=== PATIENT | female | born 1995 | race Caucasian/White ===

== ENCOUNTER 2016-08-18 18:48 | Emergency (ER) | END 2016-08-18 20:12 | disposition home or self-care (01) | DX: J06.9 Acute upper respiratory infection, unspecified (principal) ==

== ENCOUNTER 2018-02-11 18:42 | Emergency (ER) | END 2018-02-11 21:33 | disposition home or self-care (01) ==

== ENCOUNTER 2018-07-21 13:03 | Emergency (ER) | payer OTHER ==
[~2018-07-21] VITALS: Wt 82.0 kg
[~2018-07-21 13:03] MED LIST: ALBU8.5H8 INH; CETI10CA PO; FIORICET PO; FLUT9.9S NASAL; GUAI120S26 PO; IBUP-1542 PO
[2018-07-21 13:09] VITALS: BP 149/96; PULSE 88; RESP 20
[2018-07-21] MEDS ORDERED: SOD CHLORIDE 0.9% 1,000 ML IV STA (14:40)
[2018-07-21] MEDS ORDERED: ONDANSETRON 4 MG INJ IV STA (14:40)
[2018-07-21] MEDS ORDERED: MECLIZINE 12.5 MG TAB PO ONE (15:00)
[2018-07-21] MEDS ORDERED: ACET500C5 PO (16:10)
[2018-07-21] MEDS ORDERED: ONDA4TAB14 PO (16:10)
--- NOTE | 2018-07-21 18:29 | ERD ---
ER Documentation Chief Complaint Chief Complaint dizziness, abd pain, nausea started today, unk status HPI Patient is a 23-year-old female with no past medical history presents the ER for concerns of multiple complaints. Patient reports dizziness for last 3 days. Patient states that she feels as if the room is spinning. Patient also admits to diffuse abdominal pain. She is unable to localize where the pain is the most. Patient reports nausea. She denies any fevers or chills. Patient denies any vomiting or diarrhea. Patient denies any dysuria, frequency, urgency or hematuria. Patient states her last menstrual period was 3 weeks ago. She states she did have a positive test initially and a negative test thereafter. Patient is unsure if she is . Patient states she is also having intermittent palpitations. She states the palpitations come and go. Palpitations last less than 1 minute. Patient denies any history of DVT/PE, OCP use, history of recent travel or history of recent surgeries. ROS All systems reviewed and are negative except as per history of present illness. Medications Home Meds Active Scripts Ondansetron (Ondansetron Odt) 4 Mg Tab.rapdis, 4 MG PO Q6H PRN for NAUSEA AND/OR VOMITING, #10 TAB Prov:EMILY LANG PA-C 07/26/18 Famotidine* (Pepcid*) 20 Mg Tablet, 20 MG PO BID for 4 Days, TAB Prov:EMILY LANG PA-C 07/26/18 Ondansetron (Ondansetron Odt) 4 Mg Tab.rapdis, 4 MG PO Q6H PRN for NAUSEA AND/OR VOMITING, #10 TAB Prov:LAYLA COURTNEY PA-C 07/21/18 Acetaminophen* (Tylophen*) 500 Mg Capsule, 1 CAP PO Q6H PRN for PAIN AND OR ELEVATED TEMP, #20 CAP Prov:LAYLA COURTNEY PA-C 07/21/18 Acetamin/Butalbital/Caffeine* (Fioricet*) [id number] Tab, 1 TAB PO Q6H PRN for PAIN, #30 TAB Prov:KAZ NOLAN PA-C 02/11/18 Fluticasone Propionate (Flonase Allergy Relief) 9.9 Ml [place].susp, 2 SPRAY NASAL DAILY, #1 BOTTLE TO EACH NOSTRIL Prov:BENITO LAGUNA NP 08/18/16 Albuterol Sulfate* (Proair HFA*) 8.5 Gm Hfa.aer.ad, 2 PUFF INH Q4H PRN for WHEEZING AND SOB, #1 INHALER Prov:BENITO LAGUNA NP 08/18/16 Ibuprofen* (Motrin*) 600 Mg Tab, 600 MG PO Q6H PRN for PAIN AND OR ELEVATED TEMP, #30 TAB Prov:BENITO LAGUNA NP 08/18/16 Cetirizine Hcl* (Zyrtec*) 10 Mg Capsule, 10 MG PO DAILY, #30 TAB.CHEW Prov:BENITO LAGUNA NP 08/18/16 Cffvqejszfp-W-Kaaglnpcuu Hb* (Guaifenesin* DM Syrup) 120 Ml Syrup, 10 ML PO Q4H PRN for COUGH, #120 ML Prov:BENITO LAGUNA NP 08/18/16 Allergies Allergies: Coded Allergies: No Known Allergy (Unverified , 07/26/18) PMhx/Soc Medical and Surgical Hx: pt denies Medical Hx, pt denies Surgical Hx History of Surgery: No Anesthesia Reaction: No Hx Neurological Disorder: No Hx Respiratory Disorders: No Hx Cardiac Disorders: No Hx Psychiatric Problems: No Hx Miscellaneous Medical Probl: No Hx Alcohol Use: Yes (socially) Hx Substance Use: No Hx Tobacco Use: No Smoking Status: Never smoker FmHx Family History: No diabetes Physical Exam Vitals Physical Exam GENERAL: Well-developed, well-nourished female. Appears in no acute distress. Speaking in full sentences. HEAD: Normocephalic, atraumatic. EYES: Pupils are equally reactive bilaterally. EOMs grossly intact. No conjunctival erythema. ENT: Moist mucous membranes. No uvula deviation. No kissing tonsils. NECK: Supple. No meningismus. Normal range of motion of the neck. LUNG: Clear to auscultation bilaterally. No rhonchi, wheezing, rales or coarse breath sounds. HEART: Regular rate and rhythm. No murmurs, rubs or gallops. Equal pulses bilaterally. ABDOMEN: Soft, nondistended. Slight tenderness to palpation in all 4 quadrants. . Positive bowel sounds in all four quadrants. No rebound tenderness, no guarding. (-) McBurney's point tenderness. No CVA tenderness. BACK: No midline tenderness. EXTREMITIES: Equal pulses bilaterally. No peripheral clubbing, cyanosis or edema. No unilateral leg swelling. NEUROLOGIC: Alert and oriented. Cranial nerves II through XII intact. Equal marble installation helper strength bilaterally. No pronator drift. Moving all four extremities without any difficulty. Normal speech. Steady gait. SKIN: Normal color. Warm and dry. No rashes or lesions. Results 24 hrs Laboratory Tests Test 07/21/18 14:27 07/21/18 14:28 07/21/18 14:58 Bedside Urine pH (LAB) 7.0 Bedside Urine Protein (LAB) Negative Bedside Urine Glucose (UA) Negative Bedside Urine Ketones (LAB) Negative Bedside Urine Blood 2+ Bedside Urine Nitrite (LAB) Negative Bedside Urine Leukocyte Esterase (L Negative POC Beta HCG, Qualitative NEGATIVE White Blood Count 12.8 10^3/ul Red Blood Count 4.88 10^6/ul Hemoglobin 13.7 g/dl Hematocrit 42.5 % Mean Corpuscular Volume 87.1 fl Mean Corpuscular Hemoglobin 28.1 pg Mean Corpuscular Hemoglobin Concent 32.2 g/dl Red Cell Distribution Width 11.9 % Platelet Count 313 10^3/UL Mean Platelet Volume 10.5 fl Immature Granulocytes % 0.200 % Neutrophils % 63.4 % Lymphocytes % 28.2 % Monocytes % 7.3 % Eosinophils % 0.6 % Basophils % 0.3 % Nucleated Red Blood Cells % 0.0 /100WBC Immature Granulocytes # 0.030 10^3/ul Neutrophils # 8.1 10^3/ul Lymphocytes # 3.6 10^3/ul Monocytes # 0.9 10^3/ul Eosinophils # 0.1 10^3/ul Basophils # 0.0 10^3/ul Nucleated Red Blood Cells # 0.0 10^3/ul Sodium Level 140 mmol/L Potassium Level 4.1 mmol/L Chloride Level 104 mmol/L Carbon Dioxide Level 26 mmol/L Anion Gap 10 Blood Urea Nitrogen 11 mg/dl Creatinine 0.77 mg/dl Est Glomerular Filtrat Rate mL/min > 60 mL/min Glucose Level 106 mg/dl Calcium Level 10.1 mg/dl Total Bilirubin 0.1 mg/dl Direct Bilirubin 0.00 mg/dl Indirect Bilirubin 0.1 mg/dl Aspartate Amino Transf (AST/SGOT) 19 IU/L Alanine Aminotransferase (ALT/SGPT) 9 IU/L Alkaline Phosphatase 68 IU/L Total Protein 9.3 g/dl Albumin 4.8 g/dl Globulin 4.50 g/dl Albumin/Globulin Ratio 1.06 Lipase 58 U/L Current Medications Medications Dose Sig/Marco Antonio Start Time Status Last (Trade) Ordered Route PRN Stop Time Admin Dose Reason Admin Sodium 1,000 ml @ Q1H STAT 07/21/18 DC 07/21/18 Chloride 1,000 mls/hr IV 14:40 07/21/18 15:09 15:39 Ondansetron 4 mg ONCE STAT 07/21/18 DC 07/21/18 HCl (Zofran IV 14:40 07/21/18 15:09 Inj) 15:01 Meclizine 25 mg ONCE ONCE 07/21/18 DC 07/21/18 HCl PO 15:00 07/21/18 15:09 (Antivert) 15:01 Procedures/MDM ED COURSE: The patient was stable throughout ED course. I kept the patient and/or family informed of laboratory and diagnostic imaging results throughout the ED course. EKG: Read by Dr. Petersen attending physician. EKG shows normal sinus rhythm, incomplete right bundle branch block, [address] elevations or T wave changes were noted. MEDICATIONS GIVEN: Zofran, meclizine, IV fluids Patient tolerated medication well with no adverse reactions. Patient reported improvement in pain. MEDICAL DECISION MAKING: This is a 23-year-old female presents the ER for concerns of dizziness, diffuse abdominal pain, nausea and palpitations for the last 3 days.. Vital signs were reviewed. Patient is afebrile. Patient was not hypoxic. Patient had mild tenderness to palpation in all 4 quadrants. Patient had no rebound or guarding. Patient's neuro exam was normal. IV line was established. Blood work was obtained. CBC showed no evidence of severe anemia. Patient's WBC count was 12.8. CMP showed no evidence of electrolyte abnormalities, severe acidosis, alkalosis, renal failure, or liver disease. Lipase showed no evidence of acute pancreatitis. UA showed 2+ blood. Urine test is negative. EKG showed normal sinus rhythm, right bundle branch block. Upon reexamination, patient reported improvement in symptoms. Patient was talking on her cell phone with no signs of acute distress. I reassured the patient that her EKG was within normal limits. Patient was advised she should follow-up with her primary care physician for additional workup of her symptoms. DDX included but was not limited to TIA, CVA, intracranial hemorrhage, sepsis, severe electrolyte abnormalities, acute coronary syndrome, aortic dissection, AAA, mesenteric ischemia, lower lobe pneumonia, pneumothorax, electrolyte abnormalities, DKA, bowel perforation, bowel obstruction, cholecystitis, choledocholithiasis, ascending cholangitis, pancreatitis, UTI, nephrolithiasis, pyelonephritis. Patient was nontoxic, non-ill appearing prior to discharge. PRESCRIPTIONS: Zofran, Tylenol DISCHARGE: At this time, patient is stable for discharge and outpatient management. I have instructed the patient to follow-up with his/her primary care physician in 1-2 days. I have instructed the patient to promptly return to the ER at any time for any new or worsening symptoms including increased pain, nausea, vomiting, diarrhea, fever, weakness or LOC. The patient and/or family expressed understanding of and agreement with this plan. All questions were answered. Home care instructions were provided. Disclaimer: Inadvertent spelling and grammatical errors are likely due to EHR/dictation software use and do not reflect on the overall quality of patient care. Also, please note that the electronic time recorded on this note does not necessarily reflect the actual time of the patient encounter. Departure Diagnosis: Primary Impression: Multiple complaints Additional Impressions: Palpitations Abdominal pain Abdominal location: unspecified location Qualified Codes: R10.9 - Unspecified abdominal pain Dizziness Condition: Fair Patient Instructions: Abdominal Pain, Dizziness (Vertigo) and Balance Problems: Ensuring Your Safety, Palpitations Referrals: [facility] YOU HAVE RECEIVED A MEDICAL SCREENING EXAM AND THE RESULTS INDICATE THAT YOU DO NOT HAVE A CONDITION THAT REQUIRES URGENT TREATMENT IN THE EMERGENCY DEPARTMENT. FURTHER EVALUATION AND TREATMENT OF YOUR CONDITION CAN WAIT UNTIL YOU ARE SEEN IN YOUR DOCTORS OFFICE WITHIN THE NEXT 1-2 DAYS. IT IS YOUR RESPONSIBILITY TO MAKE AN APPOINTMENT FOR FOLOW-UP CARE. IF YOU HAVE A PRIMARY DOCTOR --you should call your primary doctor and schedule an appointment IF YOU DO NOT HAVE A PRIMARY DOCTOR YOU CAN CALL OUR PHYSICIAN REFERRAL HOTLINE AT IF YOU CAN NOT AFFORD TO SEE A PHYSICIAN YOU CAN CHOSE FROM THE FOLLOWING [facility] [address] [facility] [address] [facility] [address] [facility] [address] [facility] [address] [facility]. [facility] [address] [facility]. [facility] YOU HAVE RECEIVED A MEDICAL SCREENING EXAM AND THE RESULTS INDICATE THAT YOU DO NOT HAVE A CONDITION THAT REQUIRES URGENT TREATMENT IN THE EMERGENCY DEPARTMENT. FURTHER EVALUATION AND TREATMENT OF YOUR CONDITION CAN WAIT UNTIL YOU ARE SEEN IN YOUR DOCTORS OFFICE WITHIN THE NEXT 1-2 DAYS. IT IS YOUR RESPONSIBILITY TO MAKE AN APPOINTMENT FOR FOLOW-UP CARE. IF YOU HAVE A PRIMARY DOCTOR --you should call your primary doctor and schedule and appointment IF YOU DO NOT HAVE A PRIMARY DOCTOR YOU CAN CALL OUR PHYSICIAN REFERRAL HOTLINE AT . IF YOU CAN NOT AFFORD TO SEE A PHYSICIAN YOU CAN CHOSE FROM THE FOLLOWING [facility] INSTITUTIONS: [facility] [address] [place] [address] [facility] [address] [place] [address] [facility] [address] [place] [address] Additional Instructions: Call your primary care doctor TOMORROW for an appointment during the next 1-2 days.See the doctor sooner or return here if your condition worsens before your appointment time. LAYLA COURTNEY PA-C Jul 21, 2018 18:29
[2018-07-30] MEDS ORDERED: METR500T PO (15:04)
== END 2018-07-21 16:20 | disposition home or self-care (01) ==
LOC: FTE 13:03
DX: R10.84 Generalized abdominal pain (principal); R00.2 Palpitations; R42 Dizziness and giddiness
CPT/HCPCS: 80053; 81003; 81025; 83690; 85025; 93005; J2405; J7030; Z7610; 36415; 96374

== ENCOUNTER 2018-07-26 08:44 | Emergency (ER) | payer OTHER ==
[~2018-07-26] VITALS: Ht 157.5 cm; Wt 81.6 kg
[~2018-07-26 08:44] MED LIST changes: +ACET500C5 PO; +ONDA4TAB14 PO
[2018-07-26 08:45] VITALS: Ht 157.5 cm; Wt 81.6 kg
[2018-07-26] MEDS ORDERED: morphine 2 MG INJ IV STA (10:03)
[2018-07-26] MEDS ORDERED: SOD CHLORIDE 0.9% 500 ML IV STA (10:03)
[2018-07-26] MEDS ORDERED: ONDANSETRON 4 MG INJ IV STA (10:03)
[2018-07-26] MEDS ORDERED: FAMOTIDINE 20 MG INJ IV STA (10:03)
[2018-07-26] MEDS ORDERED: ONDANSETRON (ODT) 4 MG TAB ODT STA (10:19)
--- NOTE | 2018-07-26 10:28 | ERD ---
ER Documentation Chief Complaint Chief Complaint epigastric pain and vomiting since last night HPI This is a 23-year-old female presents ED with complaints of epigastric pain since last night. Patient states the pain comes and goes and rates an 8 out of 10. Patient admits to having multiple episodes of nonbilious nonbloody vomiting associated with the pain. Patient admits to decreased appetite. Denies fever, chills, hemoptysis, diarrhea, constipation, melena, hematochezia, dysuria, hematuria, vaginal pain, vaginal discharge, back pain and all the symptoms. Denies recent travel or sick contact. ROS All systems reviewed and are negative except as per history of present illness. Medications Home Meds Active Scripts Ondansetron (Ondansetron Odt) 4 Mg Tab.rapdis, 4 MG PO Q6H PRN for NAUSEA AND/OR VOMITING, #10 TAB Prov:EMILY LANG PA-C 07/26/18 Famotidine* (Pepcid*) 20 Mg Tablet, 20 MG PO BID for 4 Days, TAB Prov:EMILY LANG PA-C 07/26/18 Ondansetron (Ondansetron Odt) 4 Mg Tab.rapdis, 4 MG PO Q6H PRN for NAUSEA AND/OR VOMITING, #10 TAB Prov:LAYLA COURTNEY PA-C 07/21/18 Acetaminophen* (Tylophen*) 500 Mg Capsule, 1 CAP PO Q6H PRN for PAIN AND OR ELEVATED TEMP, #20 CAP Prov:LAYLA COURTNEY PA-C 07/21/18 Acetamin/Butalbital/Caffeine* (Fioricet*) [id number] Tab, 1 TAB PO Q6H PRN for PAIN, #30 TAB Prov:KAZ NOLAN PA-C 02/11/18 Fluticasone Propionate (Flonase Allergy Relief) 9.9 Ml [place].susp, 2 SPRAY NASAL DAILY, #1 BOTTLE TO EACH NOSTRIL Prov:BENITO LAGUNA NP 08/18/16 Albuterol Sulfate* (Proair HFA*) 8.5 Gm Hfa.aer.ad, 2 PUFF INH Q4H PRN for WHEEZING AND SOB, #1 INHALER Prov:BENITO LAGUNA NP 08/18/16 Ibuprofen* (Motrin*) 600 Mg Tab, 600 MG PO Q6H PRN for PAIN AND OR ELEVATED TEMP, #30 TAB Prov:KOBENITO LANGLEY SWEATER OPERATOR 08/18/16 Cetirizine Hcl* (Zyrtec*) 10 Mg Capsule, 10 MG PO DAILY, #30 TAB.CHEW Prov:LUZ ELENABENITO SWEATER OPERATOR 08/18/16 Auphmxnwoti-H-Dubzwdehic Hb* (Guaifenesin* DM Syrup) 120 Ml Syrup, 10 ML PO Q4H PRN for COUGH, #120 ML Prov:LUZ ELENABENITO SWEATER OPERATOR 08/18/16 Allergies Allergies: Coded Allergies: No Known Allergy (Unverified , 07/26/18) PMhx/Soc Medical and Surgical Hx: pt denies Medical Hx, pt denies Surgical Hx History of Surgery: No Anesthesia Reaction: No Hx Neurological Disorder: No Hx Respiratory Disorders: No Hx Cardiac Disorders: No Hx Psychiatric Problems: No Hx Miscellaneous Medical Probl: No Hx Alcohol Use: Yes (socially) Hx Substance Use: No Hx Tobacco Use: No Smoking Status: Never smoker FmHx Family History: No diabetes Physical Exam Vitals Vital Signs Date Temp Pulse Resp B/P (MAP) Pulse Ox O2 O2 Flow FiO2 Time Delivery Rate 07/26/18 97.5 85 18 125/85 98 08:45 (98) Physical Exam Const: No acute distress Head: Atraumatic Eyes: Normal Conjunctiva ENT: Normal External Ears, Nose and Mouth. Neck: Full range of motion. No meningismus. Resp: Clear to auscultation bilaterally Cardio: Regular rate and rhythm, no murmurs Abd: Soft, nondistended, no peritoneal signs, no rigidity, no surgical abdomen, bowel sounds present all 4 quadrants, mild tenderness palpation epigastric and right upper quadrant, nontender in all other quadrants, McBurney's point nontender, no rebound tenderness Skin: No petechiae or rashes Back: No midline or flank tenderness Ext: No cyanosis, or edema Neur: Awake and alert Psych: Normal Mood and Affect Result Diagram: 07/26/18 1045 07/26/18 1045 Results 24 hrs Laboratory Tests Test 07/26/18 10:17 07/26/18 10:45 POC Beta HCG, Qualitative NEGATIVE White Blood Count 14.5 10^3/ul Red Blood Count 5.07 10^6/ul Hemoglobin 14.2 g/dl Hematocrit 43.8 % Mean Corpuscular Volume 86.4 fl Mean Corpuscular Hemoglobin 28.0 pg Mean Corpuscular Hemoglobin Concent 32.4 g/dl Red Cell Distribution Width 11.9 % Platelet Count 300 10^3/UL Mean Platelet Volume 10.1 fl Immature Granulocytes % 0.300 % Neutrophils % 80.3 % Lymphocytes % 12.6 % Monocytes % 6.2 % Eosinophils % 0.5 % Basophils % 0.1 % Nucleated Red Blood Cells % 0.0 /100WBC Immature Granulocytes # 0.040 10^3/ul Neutrophils # 11.7 10^3/ul Lymphocytes # 1.8 10^3/ul Monocytes # 0.9 10^3/ul Eosinophils # 0.1 10^3/ul Basophils # 0.0 10^3/ul Nucleated Red Blood Cells # 0.0 10^3/ul Urine Color YELLOW Urine Clarity SLIGHTLY CLOUDY Urine pH 6.0 Urine Specific [place] 1.025 Urine Ketones NEGATIVE mg/dL Urine Nitrite NEGATIVE mg/dL Urine Bilirubin NEGATIVE mg/dL Urine Urobilinogen NEGATIVE mg/dL Urine Leukocyte Esterase 1+ Wu/ul Urine Microscopic RBC 1 /HPF Urine Microscopic WBC 5 /HPF Urine Squamous Epithelial Cells FEW /HPF Urine Bacteria FEW /HPF Urine Hemoglobin NEGATIVE mg/dL Urine Glucose NEGATIVE mg/dL Urine Total Protein NEGATIVE mg/dl Sodium Level 142 mmol/L Potassium Level 4.2 mmol/L Chloride Level 101 mmol/L Carbon Dioxide Level 27 mmol/L Anion Gap 14 Blood Urea Nitrogen 12 mg/dl Creatinine 0.63 mg/dl Est Glomerular Filtrat Rate mL/min > 60 mL/min Glucose Level 96 mg/dl Calcium Level 9.7 mg/dl Total Bilirubin 0.3 mg/dl Direct Bilirubin 0.00 mg/dl Indirect Bilirubin 0.3 mg/dl Aspartate Amino Transf (AST/SGOT) 20 IU/L Alanine Aminotransferase (ALT/SGPT) 19 IU/L Alkaline Phosphatase 56 IU/L Total Protein 8.2 g/dl Albumin 4.5 g/dl Globulin 3.70 g/dl Albumin/Globulin Ratio 1.21 Lipase 52 U/L Current Medications Medications Dose Sig/Marco Antonio Start Time Status Last (Trade) Ordered Route PRN Stop Time Admin Dose Reason Admin Sodium 500 ml @ Q1H STAT 07/26/18 DC Chloride 500 mls/hr IV 10:03 07/26/18 10:20 Morphine 4 mg ONCE STAT 07/26/18 DC Sulfate IV 10:03 07/26/18 (morphine) 10:20 Ondansetron 4 mg ONCE STAT 07/26/18 DC HCl (Zofran IV 10:03 07/26/18 Inj) 10:20 Famotidine 20 mg ONCE STAT 07/26/18 DC (Pepcid Iv) IV 10:03 07/26/18 10:20 Famotidine 20 mg ONCE ONCE 07/26/18 DC 07/26/18 (Pepcid) PO 10:30 07/26/18 10:40 10:31 Ondansetron 4 mg ONCE STAT 07/26/18 DC 07/26/18 HCl (Zofran ODT 10:19 07/26/18 10:40 Odt) 10:20 1 tab ONCE ONCE 07/26/18 DC 07/26/18 Acetaminophen PO 10:30 07/26/18 10:41 / 10:31 Hydrocodone Bitart (Kaleva (5/325)) Procedures/MDM EKG, MONITORS, & DIAGNOSTIC IMAGING: [None][place] [address] Radiology Main Line: [phone] DIAGNOSTIC IMAGING REPORT Patient: KAI SOMERS : 1995 Age: 23 Sex: F MR #: [id number] DOS: 07/26/18 1003 Ordering MD: EMILY LANG PA-C Location: [facility] Room/Bed: PROCEDURE: US Abdomen Right Upper Quadrant. CLINICAL INDICATION: Abdominal pain TECHNIQUE: Multiple real-time longitudinal and transverse images were acquired of the patient's right upper quadrant abdomen utilizing a curved array transducer. COMPARISON: None FINDINGS: Liver: normal in size and echotexture. The sagittal diameter of the right lobe measures 13.4 cm. There is no focal lesion. The hepatic and portal veins appear patent and there is normal directional flow in the main portal vein Gallbladder: Appears unremarkable and no stones are identified. There is no pericholecystic fluid. Bile ducts: There is no significant intra or extrahepatic bile duct dilatation. No choledocholiths are seen within the visualized portions. The common bile duct measures 3.0 mm in cross diameter. Pancreas: The pancreas is obscured by bowel gas. Right kidney: Normal in echotexture and in size. The right kidney measures 10.1 cm in length. No mass, pathological calcification, or hydronephrosis is evident. Peritoneum: There is no free intraperitoneal fluid IMPRESSION: 1. The pancreas is obscured by bowel gas. 2. Otherwise, unremarkable right upper quadrant abdominal sonogram. Physician Ronnell Date Time Electronically viewed and signed by Physician Ronnell on 07/26/2018 10:39 RH/ CC: EMILY LANG PA-C [id number] LAB INTERPRETATION: CBC remarkable for an elevated WBC of 14.5 with a elevated neutrophil percentage of 80.3, shows no evidence of hemorrhage Chemistry shows no evidence of significant electrolyte abnormalities or renal insufficiency Liver function test shows no evidence of acute biliary or hepatic dysfunction Lipase shows no evidence of acute pancreatitis Urine leukocyte esterase 1+, 1 microscopic RBC, 5 microscopic WBCs Urine negative ER COURSE: The patient was given Kaleva, Zofran, Pepcid The medication was well tolerated and the patient reports improvement in symptoms. The patient was stable throughout ED course. I kept the patient and/or family informed of laboratory and diagnostic imaging results throughout the emergency room course. The patient was promptly evaluated and a treatment plan was devised based on H&P and other data. This plan was discussed with the patient who agreed and had no further questions or concerns prior to discharge. MEDICAL DECISION MAKING: This is a 23-year-old female presents ED with complaints of epigastric abdominal pain since last night. Non- woman presenting with abdominal pain. test is negative. Considered causes of female-specific abdominal pain including pelvic inflammatory disease, tubo-ovarian abscess, Zgni-Ined-Vaffjb, and ovarian torsion. But given location of pain doubt any genitourinary causes. Also considered causes of abdominal pain that are not gender-specific (e.g., appendicitis, volvulus, small bowel obstruction, mesenteric adenitis, acute cholecystitis/choledocholithiasis and other biliary pathology, etc.). Patient w ell-appearing with normal vital signs. Given location of pain I have a higher suspicion for gastritis, gallbladder related etiology or pancreatitis. The ultrasound of the gallbladder is unremarkable. Lipase/LFTS is within normal limits. No peritoneal signs and abdomen benign on multiple repeat examinations. Pt well hydrated. Patient's pain is completely resolved after given Pepcid, Kaleva and Zofran. This is likely a gastritis. At this time there is no evidence of gastrointestinal or genitourinary emergency. No evidence of appendicitis, cholecystitis, cholangitis, pancreatitis, small bowel obstruction, perforated viscus, among others. We will send patient's urine for urine culture due to having a positive leukocyte Estrace. Patient given strict return precautions for worsening pain, inability to eat/drink, fevers (temperature over 100.4F), or other concerns. Prior to discharge all questions answered. She agrees with treatment plan and understands strict return precautions. Follow-up for repeat abdominal exam within 12 hours. DISPOSITION PLAN: We discussed follow up with the patient's primary care doctor within 24 to 48 hours. Patient counseled regarding my diagnostic impression and care plan. Prior to discharge all questions answered. Pt agrees with treatment plan and understands strict return precautions. Precautionary instructions provided including instructions to return to the ER if not improving or for any worsening or changing symptoms or concerns. SPECIALIST FOLLOW UP RECOMMENDED: None Patient has been advised to follow up with primary care in 1-2 days. Disclaimer: Inadvertent spelling and grammatical errors are likely due to EHR/dictation software use and do not reflect on the overall quality of patient care. Also, please note that the electronic time recorded on this note does not necessarily reflect the actual time of the patient encounter. Departure Diagnosis: Primary Impression: Abdominal pain Abdominal location: epigastric Qualified Codes: R10.13 - Epigastric pain Condition: Stable Patient Instructions: Epigastric Pain (Uncertain Cause), Gastritis (Adult), Nausea [facility] Additional Instructions: Paciente aconseja volver a Departamento de urgencias inmediatamente para sntomas nuevos o que empeoran . Paciente aconseja posteriores con el PCP en 1-2 espinosa . Paciente verbaliza la comprehensin y est de acuerdo con el tratamiento y el curso de accin. Si el paciente no tiene ninguna de atencin primaria pueden seguir con [facility] [address] [place] [address] o [facility] + [address] [address] EMILY LANG PA-C Jul 26, 2018 10:28
[2018-07-26] MEDS ORDERED: HYDROCODONE/APAP (5/325) TAB PO ONE (10:30)
[2018-07-26] MEDS ORDERED: FAMOTIDINE 20 MG TAB PO ONE (10:30)
[2018-07-26] MEDS ORDERED: FAMO-96 PO (11:33)
[2018-07-26] MEDS ORDERED: ONDA4TAB14 PO (11:33)
[2018-07-26 11:52] VITALS: BP 123/71; PULSE 97
[2018-07-30] MEDS ORDERED: METR500T PO (15:04)
== END 2018-07-26 11:54 | disposition home or self-care (01) ==
LOC: FTE 08:44
DX: R10.13 Epigastric pain (principal); R11.10 Vomiting, unspecified
CPT/HCPCS: 36415; 76705; 80053; 81001; 81025; 83690; 85025; 87086; J7040; Z7502; Z7610

== ENCOUNTER 2018-10-26 18:37 | Emergency (ER) | payer OTHER ==
[~2018-10-26] VITALS: Ht 157.5 cm; Wt 81.6 kg
[~2018-10-26 18:37] MED LIST changes: +FAMO-96 PO; +METR500T PO
[2018-10-26 18:59] VITALS: Ht 157.5 cm; Wt 81.6 kg
[2018-10-27] MEDS ORDERED: TRAM50TA2 PO (00:54)
[2018-10-27] MEDS ORDERED: traMADol 50 MG TAB PO ONE (01:00)
[2018-10-27 01:45] VITALS: BP 128/76; PULSE 76; RESP 20
--- NOTE | 2018-10-27 01:53 | ERD ---
ER Documentation Chief Complaint Chief Complaint vag bleeding w/ cramping pelvic pain x 1 wk; LMP 10/02/18 HPI History of Present Illness: Patient coming in today with complaint of lower abdominal cramping and vaginal bleeding (consistent with a menstrual flow ) for 1 week. Patient reports that last menstrual period was 10/02/18. Possible concern for . At home pharmacological/nonpharmacological treatment for symptoms: Denies Denies social concerns; Denies recent foreign travel ROS All systems reviewed and are negative except as per history of present illness. Medications Home Meds Active Scripts Tramadol HCl (Tramadol HCl) 50 Mg Tablet, 50 MG PO Q6, #10 TAB Prov:KOSTA MAHONEY NP 10/27/18 Metronidazole* (Flagyl*) 500 Mg Tablet, 500 MG PO TID for 7 Days, TAB Prov:ISIAH SORIA MD 07/30/18 Ondansetron (Ondansetron Odt) 4 Mg Tab.rapdis, 4 MG PO Q6H PRN for NAUSEA AND/OR VOMITING, #10 TAB Prov:EMILY LANG PA-C 07/26/18 Famotidine* (Pepcid*) 20 Mg Tablet, 20 MG PO BID for 4 Days, TAB Prov:EMILY LANG PA-C 07/26/18 Ondansetron (Ondansetron Odt) 4 Mg Tab.rapdis, 4 MG PO Q6H PRN for NAUSEA AND/OR VOMITING, #10 TAB Prov:LAYLA COURTNEY PA-C 07/21/18 Acetaminophen* (Tylophen*) 500 Mg Capsule, 1 CAP PO Q6H PRN for PAIN AND OR ELEVATED TEMP, #20 CAP Prov:LAYLA COURTNEY PA-C 07/21/18 Acetamin/Butalbital/Caffeine* (Fioricet*) [id number] Tab, 1 TAB PO Q6H PRN for PAIN, #30 TAB Prov:KAZ NOLAN PA-C 02/11/18 Fluticasone Propionate (Flonase Allergy Relief) 9.9 Ml [place].susp, 2 SPRAY NASAL DAILY, #1 BOTTLE TO EACH NOSTRIL Prov:BENITO LAUGNA NP 08/18/16 Albuterol Sulfate* (Proair HFA*) 8.5 Gm Hfa.aer.ad, 2 PUFF INH Q4H PRN for WHEEZING AND SOB, #1 INHALER Prov:LUZ ELENABENITODorian Mora TEST DECK SUPERVISOR 08/18/16 Ibuprofen* (Motrin*) 600 Mg Tab, 600 MG PO Q6H PRN for PAIN AND OR ELEVATED TEMP, #30 TAB Prov:LUZ ELENABENITO JOHNSON Abby TEST DECK SUPERVISOR 08/18/16 Cetirizine Hcl* (Zyrtec*) 10 Mg Capsule, 10 MG PO DAILY, #30 TAB.CHEW Prov:LUZ ELENABENITO TEST DECK SUPERVISOR 08/18/16 Qoakuzpktiq-Y-Xndrcmotow Hb* (Guaifenesin* DM Syrup) 120 Ml Syrup, 10 ML PO Q4H PRN for COUGH, #120 ML Prov:LUZ ELENABENITO JOHNSON Abby TEST DECK SUPERVISOR 08/18/16 Allergies Allergies: Coded Allergies: No Known Allergy (Unverified , 07/26/18) PMhx/Soc Medical and Surgical Hx: pt denies Medical Hx, pt denies Surgical Hx History of Surgery: No Anesthesia Reaction: No Hx Neurological Disorder: No Hx Respiratory Disorders: No Hx Cardiac Disorders: No Hx Psychiatric Problems: No Hx Miscellaneous Medical Probl: No Hx Alcohol Use: Yes (rarely) Hx Substance Use: No Hx Tobacco Use: No FmHx Family History: diabetes Physical Exam Vitals Vital Signs Date Temp Pulse Resp B/P (MAP) Pulse Ox O2 O2 Flow FiO2 Time Delivery Rate 10/26/18 98.9 85 18 132/87 99 18:59 (102) Physical Exam Const: No acute distress, afebrile Head: Atraumatic Eyes: Normal Conjunctiva ENT: Normal External Ears, Nose and Mouth. Neck: Full range of motion. No meningismus. Resp: Clear to auscultation bilaterally Cardio: Regular rate and rhythm, no murmurs Abd: Soft, tenderness to palpation to right lower quadrant, tenderness to palpation to suprapubic, tenderness to palpation to left lower quadrant (more grimacing noted during palpation to left lower quadrant), non distended. No guarding, no masses, no rigidity Skin: No petechiae or rashes Back: No midline or flank tenderness Ext: No cyanosis, or edema Neur: Awake and alert x3, speaking in clear sentences, no focal deficits or fa cial asymmetry Psych: Normal Mood and Affect gu/pelvic deferred patient refused after hearing ultrasound results., Result Diagram: 10/26/18 221 Results 24 hrs Laboratory Tests Test 10/26/18 19:35 10/26/18 19:44 10/26/18 22:18 10/26/18 22:19 Urine Color YELLOW Urine Clarity CLEAR Urine pH 6.0 Urine Specific 1.008 [place] Urine Ketones NEGATIVE mg/dL Urine Nitrite NEGATIVE mg/dL Urine Bilirubin NEGATIVE mg/dL Urine NEGATIVE mg/dL Urobilinogen Urine Leukocyte NEGATIVE Wu/ul Esterase Urine Hemoglobin NEGATIVE mg/dL Urine Glucose NEGATIVE mg/dL Urine Total NEGATIVE mg/dl Protein POC Beta HCG, NEGATIVE Qualitative Beta HCG, < 2.4 mIU/ml Quantitative White Blood Count 11.2 10^3/ul Red Blood Count 4.78 10^6/ul Hemoglobin 13.6 g/dl Hematocrit 41.2 % Mean Corpuscular 86.2 fl Volume Mean Corpuscular 28.5 pg Hemoglobin Mean Corpuscular 33.0 g/dl Hemoglobin Concen t Red Cell 12.1 % Distribution Width Platelet Count 321 10^3/UL Mean Platelet 10.0 fl Volume Immature 0.400 % Granulocytes % Neutrophils % 54.6 % Lymphocytes % 37.0 % Monocytes % 6.9 % Eosinophils % 0.8 % Basophils % 0.3 % Nucleated Red 0.0 /100WBC Blood Cells % Immature 0.040 10^3/ul Granulocytes # Neutrophils # 6.1 10^3/ul Lymphocytes # 4.2 10^3/ul Monocytes # 0.8 10^3/ul Eosinophils # 0.1 10^3/ul Basophils # 0.0 10^3/ul Nucleated Red 0.0 10^3/ul Blood Cells # Current Medications Medications Dose Sig/Marco Antonio Start Time Status Last (Trade) Ordered Route PRN Stop Time Admin Dose Reason Admin Tramadol 50 mg ONCE ONCE 10/27/18 DC 10/27/18 HCl PO 01:00 01:33 (Ultram) 10/27/18 01:01 Procedures/MDM ED course includes a thorough examination and history. Medications: --- Imaging: -- Labs: Urine and urinalysis Patient reassessment: No changes in patient condition. Urinalysis negative for infection.. Urine negative. Will order further testing to investigate cause of vaginal bleeding and pelvic pain. CBC, serum quantitative, non-OB pelvic and vaginal ultrasound ordered. Low suspicion for life-threatening medical emergency. Low suspicion for gynecological emergency or acute abdominal emergency that requires hospitalization or immediate surgical intervention. Otherwise healthy patient presenting with constellation of symptoms likely representing uncomplicated thickened endometrium, pelvic pain, free fluid in pelvis, vaginal bleeding as characterized by history, physical exam findings, lab findings, imaging findings. Ultrasound IMPRESSION: 1. Retroverted normal sized uterus with the endometrial stripe thickened to 1.1 cm. 2. The ovaries appear unremarkable and the each demonstrates vascular flow on Doppler. 3. Small amount of free fluid seen in the cul-de-sac and left adnexal region. 4. No adnexal mass is identified. R Saul, Physician ED course: Will add gonorrhea and Chlamydia testing. Translation services for patient disposition. Patient understands discharge instructions and strict follow-up with oil pipeline operator to ensure that thickened endometrium will not cause further complications including infertility. No respiratory distress, otherwise relatively well appearing and nontoxic. Patient educated on diagnoses, prescriptions, follow-up care, return precautions. Strict return precautions given for worsening condition; questions answered discharge. Disposition for discharge with followup in 2 days with PCP/clinic, preferably oil pipeline operator. Departure Diagnosis: Primary Impression: Pelvic pain Additional Impressions: Vaginal bleeding Free fluid in pelvis Thickened endometrium Condition: Stable Patient Instructions: Endometriosis, Pelvic Pain, Unknown Cause Referrals: [facility] Usted se reyez hecho un examen mdico de control que le indica que no est en isidro condicin que requiera tratamiento urgente en el Departamento de Emergencia. Un estudio ms profundo y el tratamiento de hernandez condicin pueden esperar sin ningn riesgo hasta que usted sea atendida/o en el consultorio de hernandez mdico o isidro clnica. Es responsabilidad suya arreglar isidro vaibhav para el seguimiento del jeanmarie. MANEJO DE CONDICIONES NO URGENTES EN EL FUTURO 1) Si usted tiene un mdico de atencin primaria: Usted debera llamar a hernandez mdico de atencin primaria antes de venir al departamento de emergencia. Despus de las horas de consultorio, hernandez doctor o henrandez asociado/a est disponible por telfono. El mdico o enfermero de randolph en el servicio telefnico puede asesorarle por mando medio para atender el problema, o je[place] contrario se puede programar isidro vaibhav. 2) Si usted no tiene un mdico de atencin primaria: Llame al mdico o clnica de referencia que aparece abajo smita las horas de consultorio para hacer isidro vaibhav para que le vean. CLINICAS: [facility] [phone] [facility] [phone] [facility] [phone] [place] [id number] [phone] [place] [id number] [phone] [facility]. [phone] [address] [facility]. [facility] () Usted se reyez hecho un examen mdico de control que le indica que no est en isidro condicin que requiera tratamiento urgente en el Departamento de Emergencia. Un estudio ms profundo y el tratamiento de hernandez condicin pueden esperar sin ningn riesgo hasta que usted sea atendida/o en el consultorio de hernandez mdico o isidro clnica. Es responsabilidad suya arreglar isidro vaibhav para el seguimiento del jeanmarie. MANEJO DE CONDICIONES NO URGENTES EN EL FUTURO 1) Si usted tiene un mdico de atencin primaria: Usted debera llamar a hernandez mdico de atencin primaria antes de venir al departamento de emergencia. Despus de las horas de consultorio, hernandez doctor o hernandez asociado/a est disponible por telfono. El mdico o enfermero de randolph en el servicio telefnico puede asesorarle por mando medio para atender el problema, o [place] contrario se puede programar isidro vaibhav. 2) Si usted no tiene un mdico de atencin primaria: Llame al mdico o condado institucions de referencia que aparece abajo smita las horas de consultorio para hacer isidro vaibhav para que le vean. SI USTED NO PUEDE PAGAR PARA SANDY UN MEDICO puede ir a: [facility] [address] [place] [address] [facility] [address] [place] [address] [facility] [address] [place] [address] [facility] [address] [place], [place] [id number] WIRE LOOP MACHINE [place] [address] [facility] [address] [place], [place] [phone] OFFICE FAX SHERRELL XIE [address] [place], [place] [phone] [place] [address] [place], [place] [phone] DR AYALA [facility] [address], [facility] [address] [id number] ADILENE [address]MM[address] [address] [place], [place] [phone] [facility] [address] [place], [place] [address] [address] [facility] [id number] - EDVIN BROOKS [address], [facility] [phone] DR NGUYEN, ROSIE [address] [facility]. [address], [place] [address] DR CHOI, FARID [address] [place] [address] Additional Instructions: Muchas kvng por permitirnos participar en hernandez cuidado.Hernandez addy y seguridad es nuestra principal prioridad en [facility]. Es importante leer todas las instrucciones de clementina y la educacin que se proporcionan en hernandez paquete de clementina.Llame a hernandez mdico de atencin primaria MAANA para isidro vaibhav smita los prximos 2 a 4 espinosa y lleve toda la informacin y los medicamentos recetados.Llene las recetas y siga exactamente las instrucciones de la etiqueta.Si los sntomas empeoran y hernandez proveedor no est disponible, regrese inmediatamente al Departamento de Emergencias. ---- Thank you very much for allowing us to participate in your care. Your health and safety is our top priority at [facility]. It is important to read all discharge instructions and education provided in your discharge packet. Call your primary care doctor TOMORROW for an appointment during the next 2-4 days and bring all the information and medications prescribed. Have prescriptions filled and follow precisely the directions on the label. If the symptoms get worse and your provider is unavailable, return to the Emergency Department immediately. KOSTA MAHONEY NP Oct 27, 2018 01:53
== END 2018-10-27 01:50 | disposition home or self-care (01) ==
LOC: FTE 18:37
DX: N93.9 Abnormal uterine and vaginal bleeding, unspecified (principal); N85.00 Endometrial hyperplasia, unspecified
CPT/HCPCS: 76830; 76856; 81003; 81025; 84702; 85025; 87591; 96372; Z7502; Z7610

== ENCOUNTER → 2019-03-03 | Emergency (ER) | payer OTHER ==
[~2019-03-03] VITALS: Ht 157.5 cm; Wt 82.4 kg
[~2019-03-03] MED LIST changes: +BUTA1CAP38 PO; +GUAI120S25 PO; -GUAI120S26 PO; +KETOROLAC 30 MG INJ IV STA; +ONDANSETRON 4 MG INJ IV STA; +SOD CHLORIDE 0.9% 1,000 ML IV STA; +TRAM50TA2 PO
[2019-03-03 10:01] VITALS: BP 126/76; PULSE 71; RESP 18; Ht 157.5 cm; Wt 82.4 kg
--- NOTE | 2019-03-03 10:57 | ERD ---
ER Documentation Chief Complaint Chief Complaint HEADACHE X2 DAYS, NO DIZZINESS HPI 23-year-old female presenting with a headache x2 days. Patient describes as pressure on the temples and denies any fevers. Denies any visual changes and has been taking Excedrin. Mildly dizzy. Denies medical problems. NKDA. Jayant gical history denies. Up-to-date on vaccinations. Social history denies ROS All systems reviewed and are negative except as per history of present illness. Medications Home Meds Active Scripts Fnjmykmsaf-Nonslhmwuguye-Jwaueejn* (Fioricet*) 50-300-40 Mg Capsule, 1 CAP PO Q4H PRN for HEADACHE, #30 CAP Prov:JOHN TOMLINSON PA-C 03/03/19 Tramadol HCl (Tramadol HCl) 50 Mg Tablet, 50 MG PO Q6, #10 TAB Prov:KOSTA MAHONEY NP 10/27/18 Metronidazole* (Flagyl*) 500 Mg Tablet, 500 MG PO TID for 7 Days, TAB Prov:ISIAH SORIA MD 07/30/18 Ondansetron (Ondansetron Odt) 4 Mg Tab.rapdis, 4 MG PO Q6H PRN for NAUSEA AND/OR VOMITING, #10 TAB Prov:EMILY LANG PA-C 07/26/18 Famotidine* (Pepcid*) 20 Mg Tablet, 20 MG PO BID for 4 Days, TAB Prov:EMILY LANG PA-C 07/26/18 Ondansetron (Ondansetron Odt) 4 Mg Tab.rapdis, 4 MG PO Q6H PRN for NAUSEA AND/OR VOMITING, #10 TAB Prov:LAYLA COURTNEY PA-C 07/21/18 Acetaminophen* (Tylophen*) 500 Mg Capsule, 1 CAP PO Q6H PRN for PAIN AND OR ELEVATED TEMP, #20 CAP Prov:LAYLA COURTNEY PA-C 07/21/18 Acetamin/Butalbital/Caffeine* (Fioricet*) [id number] Tab, 1 TAB PO Q6H PRN for PAIN, #30 TAB Prov:KAZ NOLAN PA-C 02/11/18 Fluticasone Propionate (Flonase Allergy Relief) 9.9 Ml [place].susp, 2 SPRAY NASAL DAILY, #1 BOTTLE TO EACH NOSTRIL Prov:BENITO LAGUNA PRINTING SHOP SUPERVISOR 08/18/16 Albuterol Sulfate* (Proair HFA*) 8.5 Gm Hfa.aer.ad, 2 PUFF INH Q4H PRN for WHEEZING AND SOB, #1 INHALER Prov:BENITO LAGUNA PRINTING SHOP SUPERVISOR 08/18/16 Ibuprofen* (Motrin*) 600 Mg Tab, 600 MG PO Q6H PRN for PAIN AND OR ELEVATED TEMP, #30 TAB Prov:BENITO LAGUNA PRINTING SHOP SUPERVISOR 08/18/16 Cetirizine Hcl* (Zyrtec*) 10 Mg Capsule, 10 MG PO DAILY, #30 TAB.CHEW Prov:BENITO LAGUNA NP 08/18/16 Vcqqagwunse-M-Mdtlvpiexu Hb* (Guaifenesin* DM Syrup) 120 Ml Syrup, 10 ML PO Q4H PRN for COUGH, #120 ML Prov:BENITO LAGUNA NP 08/18/16 Allergies Allergies: Coded Allergies: No Known Allergy (Unverified , 03/03/19) PMhx/Soc Medical and Surgical Hx: pt denies Medical Hx, pt denies Surgical Hx History of Surgery: No Anesthesia Reaction: No Hx Neurological Disorder: No Hx Respiratory Disorders: No Hx Cardiac Disorders: No Hx Psychiatric Problems: No Hx Miscellaneous Medical Probl: No Hx Alcohol Use: Yes (rarely) Hx Substance Use: No Hx Tobacco Use: No Smoking Status: Never smoker FmHx Family History: No diabetes, No coronary disease, No other Physical Exam Vitals Vital Signs Date Temp Pulse Resp B/P (MAP) Pulse Ox O2 O2 Flow FiO2 Time Delivery Rate 03/03/19 97.6 71 18 126/76 98 10:01 (93) Physical Exam GENERAL: The patient is well-appearing, well-nourished, in no acute distress HEENT: Atraumatic. Conjunctivae are pink. Pupils equal, round, and reactive to light. There is no scleral icterus. Tympanic membranes clear bilaterally. Oropharynx clear. CHEST: Clear to auscultation bilaterally. There are no rales, wheezes or rhonchi. HEART: Regular rate and rhythm. No murmurs, clicks, rubs or gallops. NEUROLOGIC: Alert and oriented. Cranial nerves II through XII intact. Motor strength in all 4 extremities with 5 out of 5 strength. Sensation grossly intact. Normal speech and gait. SKIN: There is no apparent rash or petechiae. The skin is warm and dry. Results 24 hrs Laboratory Tests Test 03/03/19 10:28 03/03/19 10:35 Urine Color STRAW Urine Clarity SLIGHTLY CLOUDY Urine pH 9.0 Urine Specific [place] 1.006 Urine Ketones NEGATIVE mg/dL Urine Nitrite NEGATIVE mg/dL Urine Bilirubin NEGATIVE mg/dL Urine Urobilinogen NEGATIVE mg/dL Urine Leukocyte Esterase TRACE Wu/ul Urine Microscopic RBC 1 /HPF Urine Microscopic WBC 3 /HPF Urine Squamous Epithelial Cells MODERATE /HPF Urine Bacteria FEW /HPF Urine Hemoglobin NEGATIVE mg/dL Urine Glucose NEGATIVE mg/dL Urine Total Protein NEGATIVE mg/dl POC Beta HCG, Qualitative NEGATIVE Current Medications Medications Dose Sig/Marco Antonio Start Time Status Last (Trade) Ordered Route PRN Stop Time Admin Dose Reason Admin Sodium 1,000 ml @ Q1H STAT 03/03/19 03/03/19 Chloride 1,000 mls/hr IV 10:20 10:33 03/03/19 11:19 Ondansetron 4 mg ONCE STAT 03/03/19 DC 03/03/19 HCl (Zofran IV 10:20 10:33 Inj) 03/03/19 10:21 Ketorolac 30 mg ONCE STAT 03/03/19 DC 03/03/19 Tromethamine IV 10:20 10:38 (Toradol) 03/03/19 10:21 Procedures/MDM ER course: 1 L normal saline given in ED. Urinalysis negative. Toradol and Zofran given in ED. On reevaluation patient symptoms improved. MDM: 23-year-old female presenting with headache x2 days. I have low suspicion for intracranial hemorrhage or neuro deficit. I have low suspicion for meningitis or sepsis. I do not feel blood work or further imaging is indicated. Patient is told symptoms change or worsen to return immediately to the ER. All questions answered at discharge Departure Diagnosis: Primary Impression: Headache Condition: Stable Patient Instructions: Self-Care for Headaches Referrals: COMMUNITY CLINICS YOU HAVE RECEIVED A MEDICAL SCREENING EXAM AND THE RESULTS INDICATE THAT YOU DO NOT HAVE A CONDITION THAT REQUIRES URGENT TREATMENT IN THE EMERGENCY DEPARTMENT. FURTHER EVALUATION AND TREATMENT OF YOUR CONDITION CAN WAIT UNTIL YOU ARE SEEN IN YOUR DOCTORS OFFICE WITHIN THE NEXT 1-2 DAYS. IT IS YOUR RESPONSIBILITY TO MAKE AN APPOINTMENT FOR FOLOW-UP CARE. IF YOU HAVE A PRIMARY DOCTOR --you should call your primary doctor and schedule an appointment IF YOU DO NOT HAVE A PRIMARY DOCTOR YOU CAN CALL OUR PHYSICIAN REFERRAL HOTLINE AT IF YOU CAN NOT AFFORD TO SEE A PHYSICIAN YOU CAN CHOSE FROM THE FOLLOWING [facility] [address] [facility] [address] [facility] [address] [facility] [address] [facility] [address] [facility]. [facility] [address] Additional Instructions: FOLLOW UP WITH YOUR PRIMARY CARE PHYSICIAN TOMORROW.Return to this facility if you are not improving as expected. JOHN TOMLINSON PA-C Mar 03, 2019 10:57
== END | disposition home or self-care (01) ==
LOC: FTE 09:58
DX: R51 Headache (principal)
CPT/HCPCS: 81001; 81025; 96374; 96375; J1885; J2405; J7030; Z7502